=== PATIENT | female | born 1960 | race Caucasian/White ===

== ENCOUNTER 2022-11-07 13:57 | Day surgery (SDC) | payer OTHER ==
[2022-11-07] MEDS ORDERED: Depo-Medrol 40 MG/ML IM ONE (13:58)
[2022-11-07] MEDS ORDERED: LIDOCAINE HCL 1% 50 MG/5 ML VL PF IJ ONE (13:58)
[2022-11-07] MEDS ORDERED: BUPIVACAINE 0.5% VIAL IJ ONE (13:58)
--- NOTE | 2022-11-07 17:10 | XRAY ---
Indication: Left knee injection. Intraoperative fluoroscopy provided for 7 seconds. Single digital spot image submitted for interpretation demonstrates needle tip projecting over the left femur intercondylar notch. Small amount of contrast injected for needle tip placement. Correlate with intraoperative findings/report.
--- NOTE | 2022-11-07 17:12 | XRAY ---
7 second of fluoroscopy was used in surgery for a left intra-articular knee injection.
--- NOTE | 2022-11-07 17:12 | XRAY ---
Indication: Right knee injection. Intraoperative fluoroscopy provided for 15 seconds. Single digital spot image submitted for interpretation demonstrates needle tip projecting over the right femur intercondylar notch. Small amount of contrast injected for needle tip placement. Correlate with intraoperative findings/report.
--- NOTE | 2022-11-07 17:12 | XRAY ---
15 seconds of fluoroscopy was used in surgery for a right intra-articular knee injection.
== END 2022-11-07 16:55 | disposition home or self-care (01) ==
LOC: SDC-PAIN 13:57
PROVIDERS: ATTEND Psychiatry & Neurology Pain Medicine
DX: M17.0 Bilateral primary osteoarthritis of knee (principal); E11.9 Type 2 diabetes mellitus without complications; Z79.899 Other long term (current) drug therapy
CPT/HCPCS: 20610; 73560; 77002; 82947; J1030; J2001; Q9966

== ENCOUNTER 2023-10-16 06:47 | Day surgery (SDC) | payer OTHER ==
[2023-10-16] MEDS ORDERED: BUPIVACAINE 0.5% VIAL IJ ONE (06:48)
[2023-10-16] MEDS ORDERED: Depo-Medrol 40 MG/ML IM ONE (06:48)
[2023-10-16] MEDS ORDERED: DEXMEDETOMIDINE 80 MCG/20ML-NS IV ONE (08:16)
[2023-10-16] MEDS ORDERED: DIPRIVAN 200 MG/20 ML IV ONE (08:16)
--- NOTE | 2023-10-16 10:14 | XRAY ---
Indication: Bilateral SI joint injection. Intraoperative fluoroscopy provided for 12 seconds. 4 digital spot image submitted for interpretation demonstrates posterior needle tip projecting over the left and right SI joint. Correlate with intraoperative findings/report.
--- NOTE | 2023-10-16 10:21 | XRAY ---
12 seconds of fluoroscopy was used in surgery for a bilateral sacroiliac joint injection.
[2023-10-16] MEDS ORDERED: Lactated Ringers 1,000 ML IV ONE (11:40)
== END 2023-10-16 08:48 | disposition home or self-care (01) ==
LOC: SDC-PAIN 06:47
PROVIDERS: ATTEND Psychiatry & Neurology Pain Medicine
DX: M46.1 Sacroiliitis, not elsewhere classified (principal); E11.9 Type 2 diabetes mellitus without complications
CPT/HCPCS: 27096; 72202; 77002; 82947; J1030; J2704; G0260

== ENCOUNTER 2024-02-20 07:26 | Day surgery (SDC) | payer OTHER ==
[2024-02-20] MEDS ORDERED: BUPIVACAINE 0.5% VIAL IJ ONE (07:27)
[2024-02-20] MEDS ORDERED: Depo-Medrol 40 MG/ML IM ONE (07:27)
[2024-02-20] MEDS ORDERED: LIDOCAINE HCL 1% 50 MG/5 ML VL PF IJ ONE (07:27)
--- NOTE | 2024-02-20 10:31 | XRAY ---
Indication: Bilateral ischial bursa injection. Intraoperative fluoroscopy provided for 31 seconds. 2 digital spot image submitted for interpretation demonstrates posterior needle tips projecting over the left and right ischial tuberosities. Small amount of contrast injected for needle tip placement. Correlate with intraoperative findings/report.
--- NOTE | 2024-02-20 10:32 | XRAY ---
31 seconds of fluoroscopy was used in surgery for a bilateral ischial bursa injection.
== END 2024-02-20 10:05 | disposition home or self-care (01) ==
LOC: SDC-PAIN 07:26
PROVIDERS: ATTEND Psychiatry & Neurology Pain Medicine
DX: M70.62 Trochanteric bursitis, left hip (principal); M70.61 Trochanteric bursitis, right hip; E11.9 Type 2 diabetes mellitus without complications
CPT/HCPCS: 20610; 72170; 77002; 82947; J2001; Q9966